=== PATIENT | female | born 1990 | race African-American/Black ===

== ENCOUNTER 2022-04-19 11:35 | Emergency (ER) | payer OTHER, BC ==
[2022-04-19 11:57] VITALS: BP 140/48; PULSE 87; RESP 18; TEMP 99.8; BMI 28.4
[2022-04-19] MEDS ORDERED: FLUORESCEIN NA 1 EA STRIP OD ONE (14:34)
[2022-04-19] MEDS ORDERED: TETRACAINE 0.5% OPHTH SOLN 2 ML BOTTLE OD ONE (14:34)
[2022-04-19] MEDS ORDERED: FLUORESCEIN NA 1 EA STRIP ONE (14:39)
[2022-04-19] MEDS ORDERED: TETRACAINE 0.5% OPHTH SOLN 2 ML BOTTLE ONE (14:39)
[2022-04-19] MEDS ORDERED: IBUPROFEN 600 MG TABLET (FP) PO ONE ×2 (14:59→15:09)
[2022-04-19] MEDS ORDERED: CEPHALEXIN MONOHYDRATE 500 MG CAPSULE (UD) PO ONE (15:25)
[2022-04-19] MEDS ORDERED: CEPHALEXIN MONOHYDRATE 500 MG CAPSULE (UD) ONE (15:34)
== END 2022-04-19 15:42 | disposition home or self-care (01) ==
LOC: JERFT 11:35
DX: S02.81XA Fracture of other specified skull and facial bones, right side, initial encounter for closed fracture (principal); S02.2XXA Fracture of nasal bones, initial encounter for closed fracture; Y04.0XXA Assault by unarmed brawl or fight, initial encounter
CPT/HCPCS: 70486-TC; 99284-25